=== PATIENT | female | born 1945 | race Asian ===

== ENCOUNTER 2024-02-26 08:51 | Outpatient (REF) | payer MEDICAID, SELFPAY | END 2024-02-26 08:52 | disposition home or self-care (01) | LOC: HO.LAB 08:51 | PROVIDERS: Referring Provider Internal Medicine; Visit Provider Internal Medicine | DX: Z02.89 Encounter for other administrative examinations (principal) | CPT/HCPCS: 36415 ==

== ENCOUNTER 2024-03-06 16:52 | Outpatient (REF) | payer MEDICAID, SELFPAY ==
[2024-03-10 12:48] LABS: TS Panel A 0; TS Panel B 0; TSpotTB NEGATIVE
[2024-03-10 12:49] LABS: TS Negative Control PASSED
[2024-03-10 12:50] LABS: TS Positive Control PASSED
== END 2024-03-06 16:53 | disposition home or self-care (01) ==
LOC: HO.LAB 16:52
PROVIDERS: Visit Provider Internal Medicine
DX: Z02.89 Encounter for other administrative examinations (principal)
CPT/HCPCS: 36415; 86481